=== PATIENT | female | born 1960 | race Caucasian/White ===

== ENCOUNTER 2018-02-18 10:40 | Emergency (ER) | payer OTHER, MEDICAID ==
[~2018-02-18] VITALS: Ht 157.5 cm; Wt 63.5 kg
[2018-02-18 10:40] VITALS: BP_SYST 142
[2018-02-18] MEDS ORDERED: NACL 0.9% 1,000 ML IV ONE (11:30)
[2018-02-18 11:39] LABS: BASOPHILS % (AUTO) 0.4 % (0.0-2.0); EOSINOPHILS % (AUTO) 0.4 % (0.0-4.0); HEMATOCRIT 37.9 % (36-48); LYMPHOCYTES # (AUTO) 1.7 K/uL (1.0-5.5); LYMPHOCYTES % (AUTO) 16.2 % (20.5-51.5); MEAN CORPUSCULAR HEMOGLOBIN 32 pg (27-31); MEAN CORPUSCULAR HGB CONC 34 % (32-36); MEAN CORPUSCULAR VOLUME 92 fL (79.0-98.0); MONOCYTES # (AUTO) 1.2 K/uL (0.0-1.0); MONOCYTES % (AUTO) 11.8 % (1.7-9.3); NEUTROPHILS # (AUTO) 7.7 K/uL (1.8-7.7); NEUTROPHILS % (AUTO) 71.2 % (40.0-70.0); PLATELET COUNT (AUTO) 188 K/uL (130-430); RED BLOOD CELL COUNT(AUTO) 4.12 MIL/uL (4.2-6.2); RED CELL DISTRIBUTION WIDTH 14.5 % (9.0-15.0); WHITE BLOOD COUNT (AUTO) 10.6 K/uL (4.8-10.8)
[2018-02-18 11:49] LABS: PROTHROMBIN TIME 10.4 SECS (9.5-12.5)
[2018-02-18 11:50] LABS: CALCIUM 9.3 mg/dL (8.4-11.0); CREATININE 0.81 mg/dL (0.55-1.30); POTASSIUM 3.5 mmol/L (3.5-5.1)
[2018-02-18 11:56] LABS: ALBUMIN 3.2 g/dL (3.4-4.8); TOTAL BILIRUBIN 0.6 mg/dL (0.0-1.0)
[2018-02-18 12:37] VITALS: BP_SYST 136
[2018-02-18] MEDS ORDERED: TUBERCULIN,PURIF.PROT.DERIV. 0.1 ML SYR ID ONE (15:33)
== END 2018-02-18 12:35 | disposition home or self-care (01) ==
LOC: SED 10:40
DX: K59.00 Constipation, unspecified (principal); K62.5 Hemorrhage of anus and rectum; R19.7 Diarrhea, unspecified
CPT/HCPCS: 36415; 74018; 74176; 80053; 83690; 85025; 85610; 85730; 96360; 99285; J7030; 86580